=== PATIENT | female | born 1945 | race Caucasian/White ===

== ENCOUNTER 2023-02-11 15:12 | Outpatient (CLI) | payer MEDICARE, BC, SELFPAY | END 2023-02-11 15:13 | disposition home or self-care (01) | LOC: NFLDREF 02-14 13:23 | PROVIDERS: PCP Family Medicine; Referring Provider Family Medicine; Visit Provider Family Medicine | DX: E13.9 Other specified diabetes mellitus without complications (principal) | CPT/HCPCS: 83036 ==

== ENCOUNTER 2023-11-02 15:15 | Outpatient (CLI) | payer MEDICARE, BC, SELFPAY | END 2023-11-02 15:16 | disposition home or self-care (01) | PROVIDERS: PCP Family Medicine; Visit Provider Family Medicine | DX: E78.5 Hyperlipidemia, unspecified (principal); E66.9 Obesity, unspecified; I10 Essential (primary) hypertension; E13.9 Other specified diabetes mellitus without complications; Z46.89 Encounter for fitting and adjustment of other specified devices | CPT/HCPCS: 82607; 84443 ==

== ENCOUNTER 2024-05-01 15:20 | Outpatient (CLI) | payer MEDICARE, BC, SELFPAY | END 2024-05-01 15:21 | disposition home or self-care (01) | LOC: LKVREF 15:22 | PROVIDERS: PCP Family Medicine; Visit Provider Family Medicine | DX: E13.65 Other specified diabetes mellitus with hyperglycemia (principal); Z79.84 Long term (current) use of oral hypoglycemic drugs | CPT/HCPCS: 82043; 82570 ==